=== PATIENT | female | born 2000 | race African-American/Black ===

== ENCOUNTER 2023-04-27 18:06 | Emergency (ER) | payer OTHER ==
[~2023-04-27] VITALS: Ht 167.6 cm; Wt 66.2 kg
[2023-04-27 19:57] LABS: HEMATOCRIT 39.8 % (36.0-47.0); HEMOGLOBIN 13.1 g/dl (12.0-15.5); MEAN CORPUSCULAR HEMOGLOBIN 30.8 pg (27.0-33.0); MEAN CORPUSCULAR HGB CONC 32.9 g/dl (32.0-36.5); MEAN CORPUSCULAR VOLUME 93.6 fl (80.0-96.0); PLATELET COUNT, AUTOMATED 283 10^3/uL (150-450); RED BLOOD COUNT 4.25 10^6/uL (4.00-5.40); WHITE BLOOD COUNT 7.4 10^3/uL (4.0-10.0)
[2023-04-27 20:16] LABS: CK-MB VALUE MASS < 1.0 NG/ML (<3.6)
[2023-04-27 20:20] LABS: BLOOD UREA NITROGEN 16 MG/DL (9-23); CALCIUM LEVEL 9.4 MG/DL (8.5-10.1); CARBON DIOXIDE LEVEL 25 MMOL/L (20-31); CHLORIDE LEVEL 103 MMOL/L (98-107); GLUCOSE, FASTING 78 MG/DL (60-100); POTASSIUM SERUM 3.8 MMOL/L (3.5-5.1); SODIUM LEVEL 137 MMOL/L (136-145)
[2023-04-27 20:24] LABS: ATYPICAL LYMPH 2 % (0-5); BASOPHILS 3 % (0-1); EOSINOPHILS 1 % (0-3); LYMPHOCYTES 37 % (16-44); MONOCYTES 7 % (0-5); NEUTROPHILS 50 % (28-66); PLATELET ESTIMATE NORMAL (NORMAL)
[2023-04-27 20:30] LABS: CPK CREATINE PHOSPHOKINASE 122 U/L (34-145); MB/CK RELATIVE INDEX 0.81 (< OR =4)
[2023-04-27 20:37] LABS: HCG, SERUM QUALITATIVE POSITIVE (NEGATIVE)
[2023-04-27 21:43] LABS: CK-MB VALUE MASS < 1.0 NG/ML (<3.6)
[2023-04-27 21:52] LABS: CPK CREATINE PHOSPHOKINASE 111 U/L (34-145)
[2023-04-27 22:51] VITALS: BP 118/84; TEMP 98.8; O2SAT 100
[2023-04-27 23:40] LABS: HCG, SERUM QUANTITATIVE 7497.1 MIU/ML (<4.2)
== END 2023-04-27 23:22 | disposition home or self-care (01) ==
LOC: M ED 18:06
DX: Z32.01 Encounter for pregnancy test, result positive (principal); Z3A.01 Less than 8 weeks gestation of pregnancy

== ENCOUNTER → 2023-05-01 | Outpatient (REF) | payer OTHER | LOC: M LAB REF 22:05 | PROVIDERS: ATTEND Emergency Medicine | DX: O20.0 Threatened abortion (principal); Z3A.00 Weeks of gestation of pregnancy not specified ==

== ENCOUNTER → 2023-06-03 | Outpatient (REF) | payer OTHER | LOC: M PLALAB 15:32 | PROVIDERS: ATTEND Advanced Practice Midwife | DX: Z53.9 Procedure and treatment not carried out, unspecified reason (principal) ==

== ENCOUNTER → 2023-06-15 | Outpatient (CLI) | payer OTHER ==
[2023-06-15 18:02] LABS: HEMATOCRIT 36.1 % (36.0-47.0); HEMOGLOBIN 12.1 g/dl (12.0-15.5); MEAN CORPUSCULAR HEMOGLOBIN 31.3 pg (27.0-33.0); MEAN CORPUSCULAR HGB CONC 33.5 g/dl (32.0-36.5); MEAN CORPUSCULAR VOLUME 93.3 fl (80.0-96.0); PLATELET COUNT, AUTOMATED 241 10^3/uL (150-450); RED BLOOD COUNT 3.87 10^6/uL (4.00-5.40); WHITE BLOOD COUNT 5.9 10^3/uL (4.0-10.0)
[2023-06-15 18:48] LABS: HIV 1&2 SCREEN NEGATIVE (NEGATIVE)
[2023-06-15 18:56] LABS: HEPATITIS C VIRUS ABY INDEX 0.04 INDEX (<0.8)
[2023-06-15 19:40] LABS: GC DNA AMPLIFICATION NEGATIVE (NEGATIVE)
== END ==
LOC: M PLALAB 15:31
PROVIDERS: ATTEND Advanced Practice Midwife
DX: Z34.01 Encounter for supervision of normal first pregnancy, first trimester (principal)

== ENCOUNTER → 2023-10-06 | Outpatient (CLI) | payer OTHER ==
[2023-10-06 16:05] LABS: HEMATOCRIT 30.4 % (36.0-47.0); HEMOGLOBIN 9.8 g/dl (12.0-15.5); MEAN CORPUSCULAR HEMOGLOBIN 30.6 pg (27.0-33.0); MEAN CORPUSCULAR HGB CONC 32.2 g/dl (32.0-36.5); PLATELET COUNT, AUTOMATED 233 10^3/uL (150-450); WHITE BLOOD COUNT 9.7 10^3/uL (4.0-10.0)
[2023-10-06 17:09] LABS: GC DNA AMPLIFICATION NEGATIVE (NEGATIVE)
== END ==
LOC: M PLALAB 12:57
PROVIDERS: ATTEND Advanced Practice Midwife
DX: Z34.02 Encounter for supervision of normal first pregnancy, second trimester (principal)

== ENCOUNTER → 2023-10-08 | Outpatient (CLI) | payer OTHER | LOC: M WHC 15:26 | PROVIDERS: ATTEND Advanced Practice Midwife | DX: Z34.02 Encounter for supervision of normal first pregnancy, second trimester (principal); Z3A.28 28 weeks gestation of pregnancy ==

== ENCOUNTER 2023-10-14 15:47 | Outpatient (CLI) | payer OTHER ==
[~2023-10-14] VITALS: Ht 167.6 cm; Wt 77.7 kg
[2023-10-14 16:07] VITALS: BP 108/63
[2023-10-14] MEDS ORDERED: PRENTAB9 PO (16:11)
[2023-10-14] MEDS ORDERED: B-12100010 PO (16:11)
[2023-10-14] MEDS ORDERED: HOME MED LIST COMPLETE! XX SCH (16:15)
[2023-10-14 16:32] LABS: APPEARANCE, URINE HAZY (CLEAR); BACTERIA, URINE AUTO NEGATIVE (NEGATIVE); BILIRUBIN, URINE AUTO NEGATIVE (NEGATIVE); BLOOD, URINE BLOOD NEGATIVE (NEGATIVE); COLOR, URINE YELLOW (YELLOW); GLUCOSE, URINE (UA) AUTO NEGATIVE (NEGATIVE); KETONE, URINE AUTO NEGATIVE (NEGATIVE); LEUKOCYTE ESTERASE, URINE AUTO 2+ (NEGATIVE); MUCUS, URINE SMALL (NEGATIVE); NITRITE, URINE AUTO NEGATIVE (NEGATIVE); PROTEIN, URINE AUTO 1+ mg/dL (NEGATIVE); RBC, URINE AUTO 1 /HPF (0-3); SPECIFIC GRAVITY URINE AUTO 1.023 (1.002-1.035); SQUAMOUS EPITHELIAL CELL UR AU 8 /HPF (0-6); UROBILINOGEN, URINE AUTO 0.2 mg/dL (0.0-2.0); WBC, URINE AUTO 11 /HPF (0-3)
[2023-10-14 16:45] VITALS: BP 102/57
[2023-10-14 18:01] LABS: Trichomonas vaginalis (AMP) NOT DETECTED (NEGATIVE)
[2023-10-14 18:25] LABS: GC DNA AMPLIFICATION NEGATIVE (NEGATIVE)
== END 2023-10-14 18:34 | disposition home or self-care (01) ==
LOC: M LDO 15:47
PROVIDERS: ATTEND Advanced Practice Midwife
DX: O26.893 Other specified pregnancy related conditions, third trimester (principal); R10.2 Pelvic and perineal pain; Z3A.28 28 weeks gestation of pregnancy
CPT/HCPCS: 59025; 81001; 87086; 87661; 87810; 87850; G0463

== ENCOUNTER → 2023-12-08 | Outpatient (REF) | payer OTHER ==
[~2023-12-08] MED LIST: B-12100010 PO; PRENTAB9 PO
== END ==
LOC: M SFHCWAGY 16:50
PROVIDERS: ATTEND Advanced Practice Midwife
DX: Z36.85 Encounter for antenatal screening for Streptococcus B (principal); Z3A.36 36 weeks gestation of pregnancy

== ENCOUNTER 2023-12-18 07:55 | Outpatient (CLI) | payer OTHER ==
[~2023-12-18] VITALS: Ht 167.6 cm; Wt 91.8 kg
[2023-12-18 08:19] VITALS: BP 117/70
[2023-12-18] MEDS ORDERED: HOME MED LIST COMPLETE! XX SCH (08:25)
== END 2023-12-18 09:20 | disposition home or self-care (01) ==
LOC: M LDO 07:55
PROVIDERS: ATTEND Advanced Practice Midwife
DX: Z34.03 Encounter for supervision of normal first pregnancy, third trimester (principal); Z3A.37 37 weeks gestation of pregnancy; Z71.3 Dietary counseling and surveillance
CPT/HCPCS: 59025; G0463

== ENCOUNTER 2023-12-25 10:00 | Outpatient (CLI) | payer OTHER ==
[~2023-12-25] VITALS: Ht 167.6 cm; Wt 91.6 kg
[2023-12-25 10:23] VITALS: BP 116/77
[2023-12-25] MEDS ORDERED: HOME MED LIST COMPLETE! XX SCH (10:30)
== END 2023-12-25 11:12 | disposition home or self-care (01) ==
LOC: M LDO 10:00
PROVIDERS: ATTEND Advanced Practice Midwife
DX: O47.1 False labor at or after 37 completed weeks of gestation (principal); Z3A.39 39 weeks gestation of pregnancy
CPT/HCPCS: 59025; G0463

== ENCOUNTER 2023-12-26 20:50 | Inpatient (IN) | payer OTHER ==
[2023-12-26] VITALS (9 sets, daily range): BP systolic 115–150; BP diastolic 58–93; O2SAT 98
[~2023-12-26] VITALS: Ht 167.6 cm; Wt 94.5 kg
[2023-12-26] MEDS ORDERED: TRANEXAMIC ACID INJection 1,000 MG in NS 100 ML IV PRN (21:15)
[2023-12-26] MEDS: LR 1,000 ML IV ONE (21:15)
[2023-12-26] MEDS ORDERED: CARBOPROST TROMETHAMINE 250 MCG/ML AMP IM PRN (21:15)
[2023-12-26] MEDS ORDERED: METHYLERGONOVINE MALEATE 0.2MG/ML 1ML VIAL IM PRN (21:15)
[2023-12-26] MEDS ORDERED: HOME MED LIST COMPLETE! XX SCH (21:55)
[2023-12-26 22:29] LABS: HEMATOCRIT 33.9 % (36.0-47.0); HEMOGLOBIN 11.1 g/dl (12.0-15.5); MEAN CORPUSCULAR HEMOGLOBIN 30.2 pg (27.0-33.0); MEAN CORPUSCULAR HGB CONC 32.7 g/dl (32.0-36.5); MEAN CORPUSCULAR VOLUME 92.1 fl (80.0-96.0); PLATELET COUNT, AUTOMATED 254 10^3/uL (150-450); RED BLOOD COUNT 3.68 10^6/uL (4.00-5.40); WHITE BLOOD COUNT 11.6 10^3/uL (4.0-10.0)
[2023-12-26] MEDS: LACTATED RINGER'S 1000 ML IV STA (22:35)
[2023-12-26] MEDS: LR 1,000 ML IV SCH ×2 (22:35→23:45)
[2023-12-26 22:45] LABS: HEPATITIS C VIRUS ABY INDEX < 0.02 INDEX (<0.8)
[2023-12-26] MEDS ORDERED: LR 500 ML IV PRN (23:00)
[2023-12-26] MEDS ORDERED: FENTANYL/ROPIVACAINE/NACL BAG 100 ML EPIDURAL SCH (23:00)
[2023-12-26] MEDS ORDERED: diphenhydrAMINE 50MG/ML VIAL IV PRN (23:00)
[2023-12-26] MEDS ORDERED: ONDANSETRON 4MG 2ML VIAL IV PRN ×2 (23:00→23:45)
[2023-12-26] MEDS ORDERED: NALOXONE INJ 0.4MG/1ML VIAL IV PRN (23:00)
[2023-12-26] MEDS ORDERED: EPIDURAL/PCA KEYS XX PRN (23:00)
[2023-12-26] MEDS ORDERED: ePHEDrine SULFATE 25 MG/5 ML(5MG/ML) SYRINGE IVP PRN (23:00)
[2023-12-26] MEDS: OXYTOCIN DRIP 30 UNITS in IV 1 EA IV PRN (23:33)
[2023-12-26] MEDS: LIDOCAINE 1% MDV 20ML VIAL INFIL PRN (23:42)
[2023-12-26] MEDS ORDERED: ANUSOL HC CREAM 30GM TOP PRN (23:45)
[2023-12-26] MEDS ORDERED: IBUPROFEN 600MG TAB PO PRN (23:45)
[2023-12-26] MEDS ORDERED: DOCUSATE SODIUM 100MG CAPSULE PO PRN (23:45)
[2023-12-26] MEDS ORDERED: ACETAMINOPHEN TAB 650MG DOSE (2X325MG) PO PRN (23:45)
[2023-12-26] MEDS ORDERED: ACETAMINOPHEN 500 MG TAB PO PRN (23:45)
[2023-12-26] MEDS ORDERED: RHO(D) IMMUNE GLOBULIN/MALTOSE 500MCG(2500IU)/2.2ML VIAL (WINRHO) IM SCH (23:45)
[2023-12-26] MEDS: OXYTOCIN DRIP 30 UNITS in IV 1 EA IV SCH (23:45)
[2023-12-26] MEDS ORDERED: IBUPROFEN 800 MG TAB PO PRN (23:45)
[2023-12-27] VITALS (9 sets, daily range): BP systolic 112–127; BP diastolic 59–76; O2SAT 98–100
[2023-12-27] MEDS: PRENATAL VITAMINS CHEWABLE TABLET PO SCH (10:46)
[2023-12-27] MEDS: DIBUCAINE 1% OINTMENT 30GM TOP PRN (16:24)
[2023-12-28 06:00] VITALS: BP 123/73; O2SAT 100
[2023-12-28] MEDS ORDERED: MEASLES,MUMPS,RUBELLA VACCINE INJ (MMR-II) SC.IMMUN ONE (09:00)
[2023-12-28] MEDS ORDERED: INFLUENZA QUADRIVALENT PF VACCINE 0.5ML SYRINGE IM.IMMUN ONE (09:00)
[2023-12-28] MEDS ORDERED: IBUP80TA PO (09:33)
[2023-12-28] MEDS ORDERED: ACET-683 PO (09:33)
== END 2023-12-28 14:30 | disposition home or self-care (01) | DRG 807 ==
LOC: M LDO 20:50 → M LDI 21:15 → M OBS 12-27 01:57
PROVIDERS: ADMIT Obstetrics & Gynecology; ATTEND Obstetrics & Gynecology
PROC: 10E0XZZ Delivery of Products of Conception, External Approach (ICD-10-PCS; principal; 2023-12-26)
PROC: 0HQ9XZZ Repair Perineum Skin, External Approach (ICD-10-PCS; 2023-12-26)
DX: O70.0 First degree perineal laceration during delivery (principal); Z37.0 Single live birth; Z3A.39 39 weeks gestation of pregnancy

== ENCOUNTER → 2025-03-19 | Outpatient (REF) | payer OTHER ==
[~2025-03-19] MED LIST changes: +ACET-683 PO; +IBUP80TA PO
[2025-03-19 18:04] LABS: APPEARANCE, URINE HAZY (CLEAR); BACTERIA, URINE AUTO NEGATIVE (NEGATIVE); BILIRUBIN, URINE AUTO NEGATIVE (NEGATIVE); BLOOD, URINE BLOOD NEGATIVE (NEGATIVE); GLUCOSE, URINE (UA) AUTO NEGATIVE (NEGATIVE); KETONE, URINE AUTO NEGATIVE (NEGATIVE); LEUKOCYTE ESTERASE, URINE AUTO NEGATIVE (NEGATIVE); MUCUS, URINE MODERATE (NEGATIVE); NITRITE, URINE AUTO NEGATIVE (NEGATIVE); PROTEIN, URINE AUTO NEGATIVE (NEGATIVE); RBC, URINE AUTO 1 /HPF (0-3); SPECIFIC GRAVITY URINE AUTO 1.025 (1.002-1.035); SQUAMOUS EPITHELIAL CELL UR AU 8 /HPF (0-6); UROBILINOGEN, URINE AUTO 0.2 mg/dL (0.0-2.0); WBC, URINE AUTO 2 /HPF (0-3)
[2025-03-19 18:50] LABS: Trichomonas vaginalis (AMP) NOT DETECTED (NEGATIVE)
[2025-03-19 19:14] LABS: GC DNA AMPLIFICATION NEGATIVE (NEGATIVE)
== END ==
LOC: M LAB REF 16:55
DX: N39.0 Urinary tract infection, site not specified (principal); Z20.2 Contact with and (suspected) exposure to infections with a predominantly sexual mode of transmission